=== PATIENT | female | born 1990 | race Caucasian/White ===

== ENCOUNTER 2018-11-12 | Emergency (ER) | payer OTHER ==
--- NOTE | ~2018-11-12 | EKG ---
[place], [place] ELECTROCARDIOGRAM REPORT NAME: MONCHO YARBROUGH UNIT #: [id number] ROOM: DOCTOR: EPIPHANY DRAFT REPORT BIRTHDATE: [birth year] [facility] Test Date: 2018-11-12 Test Time: 13:34:24 Pat Name: MONCHO YARBROUGH Department: Room: Gender: F Electrician Radio: Desi Hankins : 1990 Requested By: CELIO CHRISTENSEN Order Number: [id number] Reading MD: Jaiden Hurtado MD Measurements Intervals [place] Rate: 76 P: 72 MD: 154 QRS: 85 QRSD: 100 T: 41 QT: 367 QTc: 413 Interpretive Statements Sinus rhythm Nonspecific ST T changes Electronically Signed On 11-13-2018 6:45:21 PST by Jaiden Hurtado MD CM:EKGRPT:ELECTROCARDIOGRAM REPORT [id number] CELIO MONROY DRAFT REPORT CELIO CHRISTENSEN DO
[2018-11-12 14:04] LABS: BILIRUBIN NEGATIVE (NEGATIVE); BLOOD 3+ (NEGATIVE); CLARITY CLEAR (CLEAR); COLOR YELLOW (YELLOW); GLUCOSE NEGATIVE (NEGATIVE); KETONE 1+ (NEGATIVE); LEUKO ESTERASE NEGATIVE (NEGATIVE); NITRITE NEGATIVE (NEGATIVE); SPECIFIC GRAVITY >= 1.030 (1.005-1.030); UROBILINOGEN 0.2 E.U./dl (0.2-1.0)
[2018-11-12 14:15] LABS: BACTERIA TRACE; EPITHELIAL CELLS 20-25; WBC 0-2 wbc/hpf (0-5)
[2018-11-12 14:18] LABS: BASO % 0.3 % (0.0-1.0); EOS % 0.2 % (1.0-4.0); HEMATOCRIT 45.6 % (37.0-47.0); HEMOGLOBIN 15.7 g/dl (12.0-16.0); LYMPH % 8.6 % (27.0-41.0); MEAN CORPUSCULAR HGB 32.7 pg (27.0-31.0); MEAN CORPUSCULAR HGB CONC 34.4 g/dl (33.0-37.0); MEAN PLATELET VOLUME 10.4 fl (9.6-12.3); MONO % 8.2 % (3.0-9.0); NEUT # 9.6 10*3/uL (2.3-7.9); NEUT % 82.3 % (47.0-73.0); PLATELET COUNT AUTOMATED 185 10*3/uL (130-400); RED CELL DISTRI WIDTH 12.7 % (0-14.5); WHITE BLOOD COUNT 11.7 10*3/uL (4.8-10.8)
[2018-11-12 14:26] LABS: ACT PARTIAL THROMBO TIME 23.2 SECONDS (20.8-31.5); INTERNATIONAL NORM RATIO 1.1 (2.0-3.5)
[2018-11-12 14:34] LABS: ALBUMIN 3.5 gm/dl (3.1-4.5); ALKALINE PHOSPHATASE 94 U/L (45-117); BUN 10 mg/dl (7-24); CHLORIDE 108 mmol/L (98-107); CREATININE 0.61 mg/dL (0.55-1.02); LIPASE 80 U/L (73-393); POTASSIUM 3.7 mmol/L (3.5-5.1); SGOT/AST 11 IU/L (3-35); SGPT/ALT 14 U/L (12-78); SODIUM 136 mmol/L (136-145); TOTAL PROTEIN 7.4 gm/dL (6.4-8.2)
[2018-11-12 14:46] LABS: BETA-HCG, QUANT < 1.0 mIU/mL (1-3); TROPONIN I < 0.015 ng/ml (<0.045)
[2018-11-12] MEDS ORDERED: ZOFRAN4 MG PO (15:44)
== END 2018-11-12 15:56 | disposition home or self-care (01) ==
PROVIDERS: Emergency Medicine
DX: K52.9 Noninfective gastroenteritis and colitis, unspecified (principal); Z88.0 Allergy status to penicillin; Z88.1 Allergy status to other antibiotic agents; Z88.2 Allergy status to sulfonamides

== ENCOUNTER 2022-03-28 19:51 | Emergency (ER) | payer OTHER ==
[~2022-03-28 19:51] MED LIST: ZOFRAN4 MG PO
== END 2022-03-28 23:43 | disposition home or self-care (01) ==
LOC: ED 19:51
DX: S92.345A Nondisplaced fracture of fourth metatarsal bone, left foot, initial encounter for closed fracture (principal); Z88.0 Allergy status to penicillin; Z88.1 Allergy status to other antibiotic agents; W18.39XA Other fall on same level, initial encounter; Y93.89 Activity, other specified; Y92.89 Other specified places as the place of occurrence of the external cause; Y99.8 Other external cause status

== ENCOUNTER 2024-04-13 14:50 | Emergency (ER) | payer OTHER ==
[~2024-04-13] VITALS: Ht 154.9 cm; Wt 54.4 kg
[2024-04-13] MEDS ORDERED: Doxycycline Hyclate 100 MG CAP PO ONE (15:10)
[2024-04-13] MEDS ORDERED: VIBRAMYCIN100 MG PO (15:11)
== END 2024-04-13 15:24 | disposition home or self-care (01) ==
LOC: ED 14:50
DX: L73.9 Follicular disorder, unspecified (principal); R21 Rash and other nonspecific skin eruption; Z88.0 Allergy status to penicillin; Z88.1 Allergy status to other antibiotic agents; Z88.2 Allergy status to sulfonamides; Z88.8 Allergy status to other drugs, medicaments and biological substances

== ENCOUNTER 2024-06-27 12:15 | Emergency (ER) | payer OTHER ==
[~2024-06-27] VITALS: Ht 157.4 cm; Wt 54.4 kg
[~2024-06-27 12:15] MED LIST changes: +VIBRAMYCIN100 MG PO
[2024-06-27] MEDS ORDERED: MEDROL DOSEPAK4 MG PO (12:44)
== END 2024-06-27 12:56 | disposition home or self-care (01) ==
LOC: ED 12:15
DX: S90.562A Insect bite (nonvenomous), left ankle, initial encounter (principal); Z88.0 Allergy status to penicillin; Z88.1 Allergy status to other antibiotic agents; Z88.2 Allergy status to sulfonamides; Z79.2 Long term (current) use of antibiotics; W57.XXXA Bitten or stung by nonvenomous insect and other nonvenomous arthropods, initial encounter; Y93.89 Activity, other specified; Y92.89 Other specified places as the place of occurrence of the external cause; Y99.8 Other external cause status

== ENCOUNTER 2024-07-08 01:11 | Emergency (ER) | payer OTHER ==
[~2024-07-08] VITALS: Ht 157.4 cm; Wt 54.4 kg
[~2024-07-08 01:11] MED LIST changes: +MEDROL DOSEPAK4 MG PO
[2024-07-08 01:41] LABS: BASO % 0.4 % (0.0-1.0); EOS # 0.1 10*3/uL (0.0-0.4); EOS % 0.8 % (1.0-4.0); HEMATOCRIT 42.5 % (37.0-47.0); LYMPH % 27.6 % (27.0-41.0); MEAN CORPUSCULAR HGB 30.8 pg (27.0-31.0); MEAN CORPUSCULAR HGB CONC 32.7 g/dl (33.0-37.0); MEAN PLATELET VOLUME 9.9 fl (9.6-12.3); MONO % 8.7 % (3.0-9.0); NEUT # 6.8 10*3/uL (2.3-7.9); NEUT % 62.2 % (47.0-73.0); PLATELET COUNT AUTOMATED 278 10*3/uL (130-400); RED BLOOD COUNT 4.52 10*6/uL (4.10-5.10); RED CELL DISTRI WIDTH 13.4 % (0-14.5)
[2024-07-08 01:58] LABS: ALKALINE PHOSPHATASE 77 U/L (46-116); BUN 7 mg/dl (9-23); CHLORIDE 105 mmol/L (98-107); POTASSIUM 3.6 mmol/L (3.4-5.1); SGPT/ALT 26 U/L (5-49); TOTAL PROTEIN 8.1 gm/dL (6.0-8.0)
[2024-07-08] MEDS ORDERED: Doxycycline Hyclate 100 MG CAP PO ONE (02:45)
[2024-07-08] MEDS ORDERED: ACETAMINOPHEN 325 MG TAB PO ONE (02:45)
[2024-07-08] MEDS ORDERED: VIBRAMYCIN100 MG PO (02:47)
== END 2024-07-08 03:06 | disposition home or self-care (01) ==
LOC: ED 01:11
PROVIDERS: Internal Medicine
DX: L03.116 Cellulitis of left lower limb (principal); Z88.0 Allergy status to penicillin; Z88.1 Allergy status to other antibiotic agents; Z88.2 Allergy status to sulfonamides; Z88.8 Allergy status to other drugs, medicaments and biological substances; Z87.891 Personal history of nicotine dependence

== ENCOUNTER 2025-04-01 18:49 | Emergency (ER) | payer OTHER ==
[~2025-04-01] VITALS: Ht 157.4 cm; Wt 54.4 kg
[2025-04-01] MEDS ORDERED: Doxycycline Hyclate 100 MG CAPSULE PO ONE (19:15)
[2025-04-01] MEDS ORDERED: VIBRAMYCIN100 MG PO (19:16)
== END 2025-04-01 19:36 | disposition home or self-care (01) ==
LOC: ED 18:49
DX: L03.311 Cellulitis of abdominal wall (principal); Z88.0 Allergy status to penicillin; Z88.1 Allergy status to other antibiotic agents; Z88.2 Allergy status to sulfonamides; Z79.899 Other long term (current) drug therapy